=== PATIENT | female | born 1985 | race African-American/Black ===

== ENCOUNTER 2017-01-14 10:29 | Emergency (ER) | payer BC ==
[~2017-01-14] VITALS: Ht 165.1 cm; Wt 61.2 kg
[2017-01-14 10:38] VITALS: BP 104/65; PULSE 99; RESP 16; TEMP 97.5; O2SAT 98
--- NOTE | 2017-01-14 10:43 | NUR ---
Pt to bed 4, placed in gown for evaluation
--- NOTE | 2017-01-14 10:43 | NUR ---
Pt report received from YADIRA Goddard. Pt states that she has been experiencing bilat hip pain that radiates down BLE, neck pain that radiates to head. Pt states that symptoms began last night and she also vomited x 5. Pt states that she feels heaviness to head and "it feels like I'm sinking into the floor." Pt AAOx4, no trauma, no neurodeficits noted.
--- NOTE | 2017-01-14 10:55 | NUR ---
Dr. Lopez at bedside to assess pt.
[2017-01-14] MEDS ORDERED: NACL 0.9% 1,000 ML IV ONE (11:15)
[2017-01-14] MEDS ORDERED: PROCHLORPERAZINE EDISYLATE 10 MG/2 ML VIAL IVP ONE (11:15)
--- NOTE | 2017-01-14 11:36 | NUR ---
Pt to CT via wheelchair.
[2017-01-14 11:40] LABS: EOSINOPHILS % (AUTO) 0.7 % (0.0-4.0); HEMATOCRIT 38.2 % (36-48); HEMOGLOBIN 13.4 g/dL (12.0-16.0); LYMPHOCYTES # (AUTO) 0.4 K/uL (1.0-5.5); LYMPHOCYTES % (AUTO) 6.9 % (20.5-51.5); MEAN CORPUSCULAR HEMOGLOBIN 31 pg (27-31); MEAN CORPUSCULAR HGB CONC 35 % (32-36); MEAN CORPUSCULAR VOLUME 88 fL (79.0-98.0); MONOCYTES # (AUTO) 0.2 K/uL (0.0-1.0); MONOCYTES % (AUTO) 4.7 % (1.7-9.3); PLATELET COUNT (AUTO) 152 K/uL (130-430); RED BLOOD CELL COUNT(AUTO) 4.34 MIL/uL (4.2-6.2); RED CELL DISTRIBUTION WIDTH 11.6 % (9.0-15.0); WHITE BLOOD COUNT (AUTO) 5.3 K/uL (4.8-10.8)
[2017-01-14 11:44] LABS: BASOPHILS % (AUTO) 0.5 % (0.0-2.0); NEUTROPHILS # (AUTO) 4.7 K/uL (1.8-7.7); NEUTROPHILS % (AUTO) 87.2 % (40.0-70.0)
--- NOTE | 2017-01-14 11:45 | NUR ---
Pt back from CT.
[2017-01-14 11:48] LABS: CALCIUM 8.7 mg/dL (8.4-11.0); CREATININE 0.8 mg/dL (0.55-1.30); POTASSIUM 3.7 mmol/L (3.5-5.1)
[2017-01-14 11:53] LABS: ALBUMIN 3.9 g/dL (3.4-4.8); TOTAL BILIRUBIN 1.1 mg/dL (0.0-1.0); TOTAL PROTEIN, SERUM 7.4 g/dL (6.4-8.3)
[2017-01-14] MEDS ORDERED: KETOROLAC TROMETHAMINE 30 MG VIAL IVP ONE (13:00)
[2017-01-14 13:15] VITALS: BP 112/74; PULSE 88; RESP 20; TEMP 97.5; O2SAT 98
--- NOTE | 2017-01-14 13:15 | NUR ---
Patient given written and verbal discharge instructions and verbalizes understanding. ER MD discussed with patient the results and treatment provided. Patient in stable condition. ID arm band removed. IV catheter removed intact and dressing applied, no active bleeding. Rx of Zofran given. Patient educated on pain management and to follow up with PMD. Pain Scale 2/10, tolerable. Opportunity for questions provided and answered.
== END 2017-01-14 13:15 | disposition home or self-care (01) ==
LOC: SED 10:29
DX: B34.9 Viral infection, unspecified (principal); M54.2 Cervicalgia; M79.652 Pain in left thigh; M79.651 Pain in right thigh
CPT/HCPCS: 36415; 70450; 80053; 81025; 82550; 85025; 96361; 96374; 96375; 99285; J0780; J1885; J7030

== ENCOUNTER 2017-09-27 12:01 | Emergency (ER) | payer BC ==
[~2017-09-27] VITALS: Ht 165.1 cm; Wt 63.5 kg
[2017-09-27 12:12] VITALS: BP_SYST 115
[2017-09-27 12:53] LABS: BILIRUBIN,URINE NEGATIVE (NEGATIVE); BLOOD, URINE 1+ (NEGATIVE); CLARITY/URINE SL CLOUDY (CLEAR); COLOR,URINE YELLOW (YELLOW); GLUCOSE,URINE NEGATIVE (NEGATIVE); KETONES,URINE NEGATIVE (NEGATIVE); LEUKOCYTE ESTERASE ,URINE NEGATIVE (NEGATIVE); NITRITE, URINE NEGATIVE (NEGATIVE); PH,URINE 5.5 (5.0-8.0); PROTEIN URINE NEGATIVE (NEGATIVE); UROBILINOGEN,URINE 0.2 (0.2-1.0)
[2017-09-27 12:58] LABS: CALCIUM 8.9 mg/dL (8.4-11.0); CREATININE 0.67 mg/dL (0.55-1.30); HCG,QUAL RESULT NEGATIVE (NEGATIVE); POTASSIUM 3.5 mmol/L (3.5-5.1)
[2017-09-27 12:59] LABS: BASOPHILS # (AUTO) 0.2 K/uL (0.0-0.2); BASOPHILS % (AUTO) 2.2 % (0.0-2.0); EOSINOPHILS # (AUTO) 0.3 K/uL (0.0-0.4); EOSINOPHILS % (AUTO) 2.9 % (0.0-4.0); HEMATOCRIT 38.1 % (36-48); HEMOGLOBIN 12.8 g/dL (12.0-16.0); LYMPHOCYTES # (AUTO) 1.2 K/uL (1.0-5.5); LYMPHOCYTES % (AUTO) 12.8 % (20.5-51.5); MEAN CORPUSCULAR HEMOGLOBIN 30 pg (27-31); MEAN CORPUSCULAR HGB CONC 34 % (32-36); MEAN CORPUSCULAR VOLUME 89 fL (79.0-98.0); MONOCYTES # (AUTO) 0.6 K/uL (0.0-1.0); NEUTROPHILS # (AUTO) 6.9 K/uL (1.8-7.7); NEUTROPHILS % (AUTO) 76.1 % (40.0-70.0); PLATELET COUNT (AUTO) 200 K/uL (130-430); RED CELL DISTRIBUTION WIDTH 11.8 % (9.0-15.0); WHITE BLOOD COUNT (AUTO) 9.2 K/uL (4.8-10.8)
[2017-09-27] MEDS ORDERED: KETOROLAC TROMETHAMINE 30 MG VIAL IVP ONE (13:00)
[2017-09-27] MEDS ORDERED: NACL 0.9% 1,000 ML IV ONE (13:00)
[2017-09-27 13:02] LABS: ALBUMIN 3.7 g/dL (3.4-4.8); TOTAL BILIRUBIN 0.6 mg/dL (0.0-1.0)
[2017-09-27 13:03] LABS: BACTERIA,URINE FEW /HPF (None Seen); MUCUS,URINE 1+ /LPF (None Seen); WBC,URINE 0-3 /HPF (0-3)
[2017-09-27] MEDS ORDERED: ONDANSETRON HCL 4 MG/2 ML VIAL IVP ONE (13:15)
[2017-09-27 15:49] VITALS: BP_SYST 118
== END 2017-09-27 15:49 | disposition home or self-care (01) ==
LOC: SED 12:01
DX: N80.9 Endometriosis, unspecified (principal); Z90.49 Acquired absence of other specified parts of digestive tract
CPT/HCPCS: 36415; 74176; 80053; 81000; 81025; 82150; 83690; 84703; 85025; 86403; 87081; 96361; 96374; 96375; 99285; J1885; J2405; J7030

== ENCOUNTER 2021-05-09 11:39 | Emergency (ER) | payer BC ==
[~2021-05-09] VITALS: Ht 165.1 cm; Wt 70.3 kg
[2021-05-09 11:39] VITALS: BP_SYST 147
--- NOTE | 2021-05-09 11:39 | NUR ---
BROUGHT BACK TO BED #7 AND TRIAGED. REPORT GIVEN TO GORDON
--- NOTE | 2021-05-09 11:40 | NUR ---
Pt walked in to ER with c/o chest pain, 9/10 radiating to her back. EKG done at bedside and given to MD. V/S stable, no acute distress noted.
--- NOTE | 2021-05-09 11:45 | NUR ---
ER Dr. Ross at bedside examining patient.
--- NOTE | 2021-05-09 11:50 | NUR ---
# 20 gauge angiocath placed to LAC. Use of asceptic technique. Opsite placed over site. Blood return noted. Blood for lab drawn from site. Flushed with 10 cc of normal saline. No evidence of infiltration noted. Patient tolerated well.
--- NOTE | 2021-05-09 11:55 | NUR ---
CT consent signed and placed on chart
[2021-05-09] MEDS ORDERED: fentaNYL CITRATE/PF 100 MCG/2 ML AMP IVP ONE (12:00)
[2021-05-09] MEDS ORDERED: ASPIRIN 325 MG TABLET PO ONE (12:00)
[2021-05-09] MEDS ORDERED: NACL 0.9% 1,000 ML IV ONE (12:00)
[2021-05-09] MEDS ORDERED: IOHEXOL 350 mgI/mL, 150 ML INFUS..BTL IV ONE (12:11)
[2021-05-09 12:12] LABS: BASOPHILS % (AUTO) 0.2 % (0.0-2.0); EOSINOPHILS # (AUTO) 0.2 K/uL (0.0-0.4); EOSINOPHILS % (AUTO) 3.2 % (0.0-4.0); HEMATOCRIT 40.3 % (36-48); HEMOGLOBIN 13.1 g/dL (12.0-16.0); LYMPHOCYTES # (AUTO) 1.1 K/uL (1.0-5.5); LYMPHOCYTES % (AUTO) 15.7 % (20.5-51.5); MEAN CORPUSCULAR HEMOGLOBIN 29 pg (27-31); MEAN CORPUSCULAR HGB CONC 33 % (32-36); MEAN CORPUSCULAR VOLUME 90 fL (79.0-98.0); MONOCYTES # (AUTO) 0.5 K/uL (0.0-1.0); MONOCYTES % (AUTO) 7.2 % (1.7-9.3); NEUTROPHILS # (AUTO) 5.4 K/uL (1.8-7.7); NEUTROPHILS % (AUTO) 73.7 % (40.0-70.0); PLATELET COUNT (AUTO) 202 K/uL (130-430); RED BLOOD CELL COUNT(AUTO) 4.48 MIL/uL (4.2-6.2); RED CELL DISTRIBUTION WIDTH 12.5 % (9.0-15.0); WHITE BLOOD COUNT (AUTO) 7.3 K/uL (4.8-10.8)
[2021-05-09] MEDS ORDERED: ONDANSETRON HCL 4 MG/2 ML VIAL IVP ONE (12:15)
[2021-05-09 12:20] LABS: CREATININE 0.85 mg/dL (0.55-1.30); POTASSIUM 3.6 mmol/L (3.5-5.1)
[2021-05-09 12:26] LABS: ALBUMIN 3.8 g/dL (3.4-4.8); TOTAL BILIRUBIN 0.6 mg/dL (0.0-1.0)
[2021-05-09] MEDS ORDERED: LORazepam 2 MG/ML VIAL IVP ONE (14:00)
[2021-05-09] MEDS ORDERED: KETOROLAC TROMETHAMINE 30 MG VIAL IVP ONE (14:15)
[2021-05-09] MEDS ORDERED: IBUP-1969 PO (14:44)
[2021-05-09 15:05] VITALS: BP_SYST 113
--- NOTE | 2021-05-09 15:05 | NUR ---
Patient given written and verbal discharge instructions and verbalizes understanding. ER MD discussed with patient the results and treatment provided. Patient in stable condition. ID arm band removed. IV catheter removed intact and dressing applied, no active bleeding. Rx of Motrin given. Patient educated on pain management and to follow up with PMD. Pain Scale 0. Opportunity for questions provided and answered. Medication side effect fact sheet provided.
== END 2021-05-09 15:05 | disposition home or self-care (01) ==
LOC: SED 11:39
DX: R07.81 Pleurodynia (principal); R09.1 Pleurisy; J45.909 Unspecified asthma, uncomplicated
CPT/HCPCS: 36415; 71045; 71275; 76376; 80053; 80061; 83880; 84484; 85025; 85379; 85610; 85730; 93005; 96361; 96374; 96375; 99285; J1885; J2060; J2405; J3010; J7030; Q9967